=== PATIENT | female | born 1940 | race Caucasian/White ===

== ENCOUNTER 2020-05-30 15:29 | Inpatient (IN) | payer MEDICARE ==
[2020-05-30] MEDS ORDERED: Ondansetron ODT 4 MG TAB PO PRN (18:32)
[2020-05-30] MEDS: traMADol HCl 50 MG TAB PO SCH (21:01)
[2020-05-30] MEDS: Famotidine 20 MG TAB PO SCH (21:02)
[2020-05-30] MEDS: Metoprolol Tartrate 25 MG TAB PO SCH (21:02)
[2020-05-30] MEDS: Enoxaparin Sodium 40 MG/0.4 ML SYRINGE SC SCH (21:02)
[2020-05-30] MEDS: Sodium Chloride 1 GM TAB PO SCH (21:03)
[2020-05-30] MEDS: hydrOXYzine 10 MG/5 ML UDCUP PO SCH (21:03)
[2020-05-30] MEDS: Acetaminophen 500 MG TAB PO SCH (23:58)
[2020-05-30] MEDS: hydrALAZINE 25 MG TAB PO SCH (23:58)
[2020-05-31] MEDS: traMADol HCl 50 MG TAB PO SCH ×4 (02:36→19:47)
[2020-05-31 05:14] LABS: #Basophils 0.1 thou/uL (0.0-0.2); #Eosinphils 0.7 thou/uL (0.0-0.7); #Lymphocytes 1.5 thou/uL (1.20-3.40); #Monocytes 0.9 thou/uL (0.11-0.59); #Neutrophils 3.9 thou/uL (1.40-6.50); %Basophils 1.3 % (0.0-1.0); %Eosinophils 10.4 % (0.0-10.0); %Lymphocytes 20.5 % (21.0-51.0); %Monocytes 13.2 % (0.0-10.0); %Neutrophils 54.6 % (42.0-75.0); Hemoglobin 8.1 g/dL (12.0-16.0); Mean Corpuscular Volume 94.1 fL (78.0-98.0); Mean Platelet Volume 6.2 fL (7.4-10.4); Platelet Count 197 thou/uL (130-400); RBC Distribution Width 12.4 % (11.5-14.5); Red Blood Cell (RBC) Count 2.55 mill/uL (4.20-5.40); White Blood Cell (WBC) Count 7.1 thou/uL (4.8-10.8)
[2020-05-31 05:25] LABS: Anion Gap 11 mmol/L (10-20); BUN (Urea Nitrogen) 12 mg/dL (9.8-20.1); Calc. Creatinine Clearance 56 mL/min (70-130); Carbon Dioxide 25 mmol/L (23-31); Chloride 102 mmol/L (98-107); Estimated GFR-MDRD 60; Glucose 88 mg/dL (83-110); Potassium 4.5 mmol/L (3.5-5.1); Sodium 133 mmol/L (136-145)
[2020-05-31] MEDS: Acetaminophen 500 MG TAB PO SCH ×4 (05:27→23:45)
[2020-05-31] MEDS: hydrALAZINE 25 MG TAB PO SCH ×4 (05:27→23:45)
[2020-05-31] MEDS: Famotidine 20 MG TAB PO SCH ×2 (09:53→19:45)
[2020-05-31] MEDS: Clopidogrel Bisulfate 75 MG TAB PO SCH (09:53)
[2020-05-31] MEDS: Sodium Chloride 1 GM TAB PO SCH ×2 (09:53→19:46)
[2020-05-31] MEDS: Atorvastatin Calcium 10 MG TAB PO SCH (09:53)
[2020-05-31] MEDS: Aspirin 81 mg Enteric Coated Tablet PO SCH (09:54)
[2020-05-31] MEDS: hydrOXYzine 10 MG/5 ML UDCUP PO SCH (09:54)
[2020-05-31] MEDS: Metoprolol Tartrate 25 MG TAB PO SCH ×2 (09:54→19:45)
[2020-05-31] MEDS ORDERED: hydrOXYzine 25 MG TAB PO SCH (11:00)
[2020-05-31] MEDS: Ibuprofen 200 MG TAB PO PRN (11:18)
[2020-05-31] MEDS: Enoxaparin Sodium 40 MG/0.4 ML SYRINGE SC SCH ×2 (19:44→23:43)
[2020-05-31] MEDS: hydrOXYzine 25 MG TAB PO SCH (19:44)
--- NOTE | 2020-06-01 00:34 | HP ---
HISTORY OF PRESENT ILLNESS: Patient is a 79-year-old female, admitted for longterm and rehabilitation status post right hip hemiarthroplasty resulting from a ground level fall. Patient had underwent right hip hemiarthroplasty on May [address] Grossman and had rather unremarkable course from that standpoint. She did apparently have some postprocedure respiratory failure requiring supplemental oxygen postoperatively, however, this resolved spontaneously. The patient did have some hyponatremia prior to transfer, which required some treatment. The patient was discharge in stable condition. At this time, she states that her pain is well controlled. She has no complaints at this time. PAST MEDICAL HISTORY: 1. History of stroke with left-sided CVA in 2018. 2. Essential hypertension. HOME MEDICATIONS: 1. Aspirin 81 mg p.o. daily. 2. Omeprazole 10 mg p.o. daily. 3. Hydroxyzine 10 mg p.o. b.i.d. 4. Benicar 20 mg p.o. daily. 5. Metoprolol tartrate 25 mg p.o. b.i.d. 6. Plavix 75 mg p.o. daily. 7. Atorvastatin 10 mg p.o. b.i.d. 8. Senokot 2 tabs p.o. b.i.d. p.r.n. 9. Hydralazine 25 mg p.o. q.6 hours. 10. Pepcid 20 mg p.o. b.i.d. 11. Cyclobenzaprine 5 mg p.o. t.i.d. p.r.n. PAST SURGICAL HISTORY: Right total hip arthroplasty. ALLERGIES: NO KNOWN DRUG ALLERGIES. SOCIAL HISTORY: Patient lives with her . She denies any history of alcohol, tobacco, or drug use. FAMILY MEDICAL HISTORY: Significant for diabetes, hypertension, heart disease in her father, and cancer in her sister. REVIEW OF SYSTEMS: 10-point review of systems negative aside from otherwise indicated in the history of present illness. PHYSICAL EXAMINATION: VITALS: Temperature 98.7, pulse 78, respirations 18, oxygen 98% on room air, blood pressure 128/78. GENERAL: Patient is alert and oriented x3, in no apparent distress. She has no complaints at this time. HEENT: Normocephalic, atraumatic. Extraocular muscles are intact. Moist mucous membranes. CARDIOVASCULAR: Regular rate and rhythm. No murmurs, rubs, or gallops. LUNGS: Clear to auscultation bilaterally. ABDOMEN: Soft, nontender to palpation, nondistended. SKIN: Right hip incision covered with a Band-Aid. No surrounding erythema. No exudates noted. EXTREMITIES: Normal bulk and tone. No palpable cords or calf tenderness. NEUROLOGICAL: Cranial nerves 2-12 intact grossly. PSYCHIATRIC: Appropriate mood and affect. LABORATORY DATA: CBC; white blood cell count 7.1, hemoglobin 8.1, hematocrit 24.0, platelet count of 197. BMP; sodium 133, potassium 4.5, chloride 102, carbon dioxide 25, BUN 12, creatinine 0.91, glucose 88, calcium 8.0. ASSESSMENT AND PLAN: The patient is a 79-year-old female who is being admitted for physical deconditioning status post right hip fracture and right hip fracture repair. 1. Physical deconditioning. Physical therapy and occupational therapy have been ordered. The patient is already progressing well. 2. Right hip fracture, status post surgical fixation. Pain is under control. Currently, we will continue the pain medications scheduled and p.r.n. pain medication. 3. Essential hypertension. We will resume patient's home medications. 4. Hyponatremia, stable. 5. Anemia with a hemoglobin of 8.1, fairly stable compared to previously obtained hemoglobin, is likely postsurgical. We will continue to monitor. May consider discontinuing Lovenox. We will continue to monitor. 6. Gastroesophageal reflux disease. Continue patient's home medications. Job ID: [id number]
[2020-06-01] MEDS: traMADol HCl 50 MG TAB PO SCH ×4 (04:13→14:13)
[2020-06-01] MEDS: Acetaminophen 500 MG TAB PO SCH ×4 (04:17→23:18)
[2020-06-01] MEDS: hydrALAZINE 25 MG TAB PO SCH ×4 (05:44→23:18)
[2020-06-01] MEDS: Clopidogrel Bisulfate 75 MG TAB PO SCH (07:46)
[2020-06-01] MEDS: Atorvastatin Calcium 10 MG TAB PO SCH (07:46)
[2020-06-01] MEDS: Famotidine 20 MG TAB PO SCH ×2 (07:47→20:21)
[2020-06-01] MEDS: Aspirin 81 mg Enteric Coated Tablet PO SCH (07:47)
[2020-06-01] MEDS: hydrOXYzine 25 MG TAB PO SCH ×2 (07:47→20:20)
[2020-06-01] MEDS: Sodium Chloride 1 GM TAB PO SCH ×2 (07:48→20:28)
[2020-06-01] MEDS: Metoprolol Tartrate 25 MG TAB PO SCH ×2 (07:48→20:20)
[2020-06-01] MEDS: Enoxaparin Sodium 40 MG/0.4 ML SYRINGE SC SCH (20:14)
[2020-06-02] MEDS: Acetaminophen 500 MG TAB PO SCH ×4 (05:08→23:24)
[2020-06-02] MEDS: hydrALAZINE 25 MG TAB PO SCH ×4 (05:08→23:24)
[2020-06-02] MEDS: Aspirin 81 mg Enteric Coated Tablet PO SCH (09:17)
[2020-06-02] MEDS: Sodium Chloride 1 GM TAB PO SCH ×2 (09:17→20:04)
[2020-06-02] MEDS: Famotidine 20 MG TAB PO SCH ×2 (09:18→19:59)
[2020-06-02] MEDS: hydrOXYzine 25 MG TAB PO SCH ×2 (09:18→20:00)
[2020-06-02] MEDS: Atorvastatin Calcium 10 MG TAB PO SCH (09:20)
[2020-06-02] MEDS: Clopidogrel Bisulfate 75 MG TAB PO SCH (09:20)
[2020-06-02] MEDS: Metoprolol Tartrate 25 MG TAB PO SCH ×2 (09:20→20:00)
[2020-06-02] MEDS: Cyclobenzaprine 10 MG TAB PO PRN (12:11)
[2020-06-02] MEDS: traMADol HCl 50 MG TAB PO PRN (19:57)
[2020-06-02] MEDS: Enoxaparin Sodium 40 MG/0.4 ML SYRINGE SC SCH (20:00)
[2020-06-03] MEDS: Acetaminophen 500 MG TAB PO SCH ×4 (05:17→23:51)
[2020-06-03] MEDS: hydrALAZINE 25 MG TAB PO SCH ×4 (05:17→23:52)
[2020-06-03 06:07] LABS: Anion Gap 13 mmol/L (10-20); BUN (Urea Nitrogen) 16 mg/dL (9.8-20.1); Calc. Creatinine Clearance 65 mL/min (70-130); Calcium 8.5 mg/dL (7.8-10.44); Carbon Dioxide 23 mmol/L (23-31); Chloride 103 mmol/L (98-107); Estimated GFR-MDRD 65; Glucose 94 mg/dL (83-110); Sodium 135 mmol/L (136-145)
[2020-06-03] MEDS: Metoprolol Tartrate 25 MG TAB PO SCH ×2 (08:49→21:01)
[2020-06-03] MEDS: Clopidogrel Bisulfate 75 MG TAB PO SCH (08:49)
[2020-06-03] MEDS: Aspirin 81 mg Enteric Coated Tablet PO SCH (08:49)
[2020-06-03] MEDS: hydrOXYzine 25 MG TAB PO SCH ×2 (08:49→21:00)
[2020-06-03] MEDS: Sodium Chloride 1 GM TAB PO SCH ×2 (08:50→20:59)
[2020-06-03] MEDS: Atorvastatin Calcium 10 MG TAB PO SCH (08:50)
[2020-06-03] MEDS: traMADol HCl 50 MG TAB PO PRN (08:57)
[2020-06-03] MEDS: Famotidine 20 MG TAB PO SCH (12:33)
[2020-06-03 13:09] LABS: #Basophils 0.1 thou/uL (0.0-0.2); #Eosinphils 0.4 thou/uL (0.0-0.7); #Lymphocytes 1.9 thou/uL (1.20-3.40); #Monocytes 0.5 thou/uL (0.11-0.59); #Neutrophils 2.4 thou/uL (1.40-6.50); %Basophils 1.3 % (0.0-1.0); %Eosinophils 8.1 % (0.0-10.0); %Lymphocytes 35.6 % (21.0-51.0); %Monocytes 9.2 % (0.0-10.0); %Neutrophils 45.8 % (42.0-75.0); Hemoglobin 8.8 g/dL (12.0-16.0); Mean Corpuscular HGB CONC 33.6 g/dL (32.0-36.0); Mean Corpuscular Hemoglobin 31.7 pg (27.0-31.0); Mean Corpuscular Volume 94.5 fL (78.0-98.0); Platelet Count 302 thou/uL (130-400); RBC Distribution Width 12.5 % (11.5-14.5); Red Blood Cell (RBC) Count 2.77 mill/uL (4.20-5.40); White Blood Cell (WBC) Count 5.3 thou/uL (4.8-10.8)
[2020-06-03] MEDS: Enoxaparin Sodium 40 MG/0.4 ML SYRINGE SC SCH (21:10)
[2020-06-04] MEDS: Acetaminophen 500 MG TAB PO SCH ×3 (05:57→17:26)
[2020-06-04] MEDS: hydrALAZINE 25 MG TAB PO SCH ×3 (05:58→17:27)
[2020-06-04] MEDS: Senokot S 8.6-50 MG TAB PO PRN (08:21)
[2020-06-04] MEDS: Sodium Chloride 1 GM TAB PO SCH ×2 (08:22→20:22)
[2020-06-04] MEDS: Metoprolol Tartrate 25 MG TAB PO SCH ×2 (08:22→20:24)
[2020-06-04] MEDS: hydrOXYzine 25 MG TAB PO SCH ×2 (08:22→20:22)
[2020-06-04] MEDS: Atorvastatin Calcium 10 MG TAB PO SCH (08:22)
[2020-06-04] MEDS ORDERED: Iopamidol 370 76% 125 ML VIAL FS ONE (10:52)
--- NOTE | 2020-06-04 12:52 | RAD ---
EXAM: Chest one view: HISTORY: Shortness of breath, hypoxia COMPARISON: 05/26/2020 FINDINGS: Evidence for a small hiatal hernia. Heart size: Within normal limits. Lungs: Minimal linear parenchymal changes in the left base, overall improved from prior study. No evidence for confluent lobar pneumonia, significant pleural effusion, acute edema, or pneumothorax , or other significant acute process. IMPRESSION: No significant acute intrathoracic disease. Minimal improvement in the increased markings in the left base.
[2020-06-04] MEDS: traMADol HCl 50 MG TAB PO PRN (13:10)
[2020-06-04 13:32] LABS: #Basophils 0.1 thou/uL (0.0-0.2); #Eosinphils 0.2 thou/uL (0.0-0.7); #Lymphocytes 1.4 thou/uL (1.20-3.40); #Neutrophils 5.7 thou/uL (1.40-6.50); %Basophils 0.6 % (0.0-1.0); %Eosinophils 2.5 % (0.0-10.0); %Lymphocytes 16.2 % (21.0-51.0); %Monocytes 12.2 % (0.0-10.0); %Neutrophils 68.5 % (42.0-75.0); Hemoglobin 8.8 g/dL (12.0-16.0); Mean Corpuscular HGB CONC 33.5 g/dL (32.0-36.0); Mean Corpuscular Hemoglobin 31.8 pg (27.0-31.0); Mean Corpuscular Volume 94.8 fL (78.0-98.0); Mean Platelet Volume 6.1 fL (7.4-10.4); Platelet Count 354 thou/uL (130-400); RBC Distribution Width 13.3 % (11.5-14.5); Red Blood Cell (RBC) Count 2.77 mill/uL (4.20-5.40); White Blood Cell (WBC) Count 8.4 thou/uL (4.8-10.8)
--- NOTE | 2020-06-04 16:04 | CT ---
CTA CHEST WITH CONTRAST: Date: 06/04/2020 Axial tomograms obtained following angio protocol with multiplanar reconstruction and 3D postprocessi ng. INDICATION: Dyspnea. Status post right hip arthroplasty. FINDINGS: The pulmonary arteries show adequate enhancement. The thoracic aorta is unremarkable with no dissection. Review of the lung henry show confluent infiltrate and atelectasis in the right lung base. Atelectas is and infiltrate also seen in the posterior left lung base with a small area of loculated fluid. There is a small fixed sliding diaphragmatic hernia. Nonspecific mediastinal lymph nodes. Images through upper abdomen unremarkable. IMPRESSION: 1. No evidence of pulmonary embolus. 2. Bibasilar atelectasis and/or infiltrate slightly more pronounced in the right lung base. An area of loculated fluid in the posterior left lung base medially. POS: OFF
[2020-06-04] MEDS: Enoxaparin Sodium 40 MG/0.4 ML SYRINGE SC SCH (20:22)
[2020-06-05] MEDS: hydrALAZINE 25 MG TAB PO SCH ×4 (00:25→18:04)
[2020-06-05] MEDS: Acetaminophen 500 MG TAB PO SCH ×4 (00:25→15:56)
[2020-06-05] MEDS ORDERED: Sodium Chloride 0.9% 100 ML BAG ONE (07:21)
[2020-06-05] MEDS ORDERED: traMADol HCl 50 MG TAB PO PRN ×2 (08:13→13:41)
[2020-06-05] MEDS ORDERED: traMADol HCl 50 MG TAB PO SCH ×5 (08:15→16:00)
[2020-06-05] MEDS: Atorvastatin Calcium 10 MG TAB PO SCH (09:48)
[2020-06-05] MEDS: Sodium Chloride 1 GM TAB PO SCH ×2 (09:48→20:47)
[2020-06-05] MEDS: Metoprolol Tartrate 25 MG TAB PO SCH ×2 (09:48→20:47)
[2020-06-05] MEDS: hydrOXYzine 25 MG TAB PO SCH ×2 (09:49→20:46)
[2020-06-05] MEDS ORDERED: traMADol HCl 50 MG TAB ONE ×2 (10:30→13:47)
[2020-06-05] MEDS: Ibuprofen 200 MG TAB PO PRN ×2 (10:31→18:13)
[2020-06-05] MEDS: Cyclobenzaprine 10 MG TAB PO PRN ×2 (10:32→18:21)
[2020-06-05] MEDS: traMADol HCl 50 MG TAB PO SCH ×2 (15:54→21:35)
[2020-06-05] MEDS: Enoxaparin Sodium 40 MG/0.4 ML SYRINGE SC SCH (20:46)
[2020-06-06] MEDS: Acetaminophen 500 MG TAB PO SCH ×5 (00:19→22:15)
[2020-06-06] MEDS: hydrALAZINE 25 MG TAB PO SCH ×4 (00:19→17:28)
[2020-06-06] MEDS: traMADol HCl 50 MG TAB PO SCH ×4 (04:59→22:16)
[2020-06-06] MEDS: Sodium Chloride 1 GM TAB PO SCH ×2 (08:25→20:41)
[2020-06-06] MEDS: Metoprolol Tartrate 25 MG TAB PO SCH ×2 (08:26→20:42)
[2020-06-06] MEDS: hydrOXYzine 25 MG TAB PO SCH ×2 (08:26→20:41)
[2020-06-06] MEDS: Atorvastatin Calcium 10 MG TAB PO SCH (08:26)
[2020-06-06] MEDS: Cyclobenzaprine 10 MG TAB PO PRN (08:34)
[2020-06-06] MEDS: Ibuprofen 200 MG TAB PO PRN (08:34)
[2020-06-06] MEDS: Enoxaparin Sodium 40 MG/0.4 ML SYRINGE SC SCH (20:42)
[2020-06-06] MEDS ORDERED: Enoxaparin Sodium 40 MG/0.4 ML SYRINGE SC SCH (21:00)
[2020-06-07] MEDS: hydrALAZINE 25 MG TAB PO SCH ×5 (00:52→23:29)
[2020-06-07] MEDS: Acetaminophen 500 MG TAB PO SCH ×4 (04:18→22:40)
[2020-06-07] MEDS: traMADol HCl 50 MG TAB PO SCH ×4 (04:19→22:41)
[2020-06-07] MEDS: Cyclobenzaprine 10 MG TAB PO PRN (08:55)
[2020-06-07] MEDS: Sodium Chloride 1 GM TAB PO SCH ×2 (08:55→20:56)
[2020-06-07] MEDS: Metoprolol Tartrate 25 MG TAB PO SCH ×2 (08:56→20:56)
[2020-06-07] MEDS: Atorvastatin Calcium 10 MG TAB PO SCH (08:57)
[2020-06-07] MEDS: hydrOXYzine 25 MG TAB PO SCH ×2 (08:57→20:56)
[2020-06-07] MEDS: Clopidogrel Bisulfate 75 MG TAB PO SCH (08:57)
[2020-06-07] MEDS: Ibuprofen 200 MG TAB PO PRN (10:22)
[2020-06-07 12:07] VITALS: BMI 26.6
[2020-06-07] MEDS: Senokot S 8.6-50 MG TAB PO PRN (20:56)
[2020-06-08] MEDS: traMADol HCl 50 MG TAB PO SCH ×5 (03:52→23:13)
[2020-06-08] MEDS: Acetaminophen 500 MG TAB PO SCH ×4 (03:54→23:13)
[2020-06-08] MEDS: hydrALAZINE 25 MG TAB PO SCH ×4 (05:15→23:14)
[2020-06-08] MEDS: Cyclobenzaprine 10 MG TAB PO PRN (08:23)
[2020-06-08] MEDS: hydrOXYzine 25 MG TAB PO SCH ×2 (08:24→20:00)
[2020-06-08] MEDS: Aspirin 81 mg Enteric Coated Tablet PO SCH (08:24)
[2020-06-08] MEDS: Sodium Chloride 1 GM TAB PO SCH ×2 (08:25→20:00)
[2020-06-08] MEDS: Clopidogrel Bisulfate 75 MG TAB PO SCH (08:25)
[2020-06-08] MEDS: Atorvastatin Calcium 10 MG TAB PO SCH (08:25)
[2020-06-08] MEDS: Metoprolol Tartrate 25 MG TAB PO SCH ×2 (08:25→20:00)
[2020-06-09] MEDS: Acetaminophen 500 MG TAB PO SCH ×2 (05:13→12:02)
[2020-06-09] MEDS: hydrALAZINE 25 MG TAB PO SCH ×2 (05:13→12:03)
[2020-06-09] MEDS: traMADol HCl 50 MG TAB PO SCH ×2 (05:14→12:01)
[2020-06-09 07:23] VITALS: TEMP 98
[2020-06-09] MEDS: Metoprolol Tartrate 25 MG TAB PO SCH (08:11)
[2020-06-09] MEDS: hydrOXYzine 25 MG TAB PO SCH (08:11)
[2020-06-09] MEDS: Atorvastatin Calcium 10 MG TAB PO SCH (08:11)
[2020-06-09] MEDS: Aspirin 81 mg Enteric Coated Tablet PO SCH (08:11)
[2020-06-09] MEDS: Sodium Chloride 1 GM TAB PO SCH (08:12)
[2020-06-09] MEDS: Clopidogrel Bisulfate 75 MG TAB PO SCH (08:12)
[2020-06-09 12:03] VITALS: BP 130/61
[2020-06-09] MEDS: Ibuprofen 200 MG TAB PO PRN (13:39)
== END 2020-06-09 15:15 | disposition home or self-care (01) | DRG 560 ==
LOC: MADMS 16:20
PROVIDERS: ADMIT Family Medicine; ATTEND Family Medicine
DX: S72.001D Fracture of unspecified part of neck of right femur, subsequent encounter for closed fracture with routine healing (principal); E87.1 Hypo-osmolality and hyponatremia; Z96.641 Presence of right artificial hip joint; I10 Essential (primary) hypertension; R53.81 Other malaise; D64.9 Anemia, unspecified; K21.9 Gastro-esophageal reflux disease without esophagitis; W18.30XD Fall on same level, unspecified, subsequent encounter; Z86.73 Personal history of transient ischemic attack (TIA), and cerebral infarction without residual deficits; Z79.82 Long term (current) use of aspirin; Z79.02 Long term (current) use of antithrombotics/antiplatelets
CPT/HCPCS: 36415; 71045; 71275; 80048; 83880; 84484; 85025; J1650; J3490; Q9967